=== PATIENT | male | born 1960 | race Caucasian/White ===

== ENCOUNTER → 2016-07-18 | Outpatient (CLI) | payer MEDICAID ==
[2016-07-18 13:13] LABS: ALKALINE PHOSPHATASE 68 U/L (45-117); HDL CHOLESTEROL 40.3 MG/DL (40.0-60.0); TOTAL BILIRUBIN ADULT 0.4 MG/DL (0.2-1.0)
[2016-07-18 13:14] LABS: ALT (GPT) 75 U/L (12-78); ANION GAP 8 MEQ/L (5-15); AST (GOT) 28 U/L (15-37); BICARBONATE 23.9 MEQ/L (21.0-32.0); BLOOD UREA NITROGEN 14 MG/DL (7-18); CHLORIDE 104 MEQ/L (98-107); GLOMERULAR FILTRATION RATE 66 ML/MIN (>89); GLUCOSE,FASTING 199 MG/DL (74-99); LDL CHOLESTEROL 56 MG/DL (0-99); SODIUM (NA) 136 MEQ/L (136-145)
[2016-07-18 13:27] LABS: POTASSIUM 4.2 MEQ/L (3.5-5.1)
[2016-07-18 16:03] LABS: HEMOGLOBIN A1a 0.9 %; HEMOGLOBIN A1b 2.2 %; HEMOGLOBIN Ao 81.9 %; HEMOGLOBIN LA1C 2.9 %; HEMOGLOBIN P3 4.4 %
== END ==
LOC: CLAB 12:28
PROVIDERS: ATTEND General Practice
DX: E11.9 Type 2 diabetes mellitus without complications (principal)
CPT/HCPCS: 36415; 80053; 80061; 83036